=== PATIENT | female | born 2005 ===

== ENCOUNTER 2024-03-16 06:17 | Inpatient (IN) | payer OTHER ==
[2024-03-16] VITALS (57 sets, daily range): BP systolic 115–182; BP diastolic 51–101; PULSE 68–109; TEMP 97.8–98.9
[~2024-03-16] VITALS: Ht 162.6 cm; Wt 109.5 kg
[~2024-03-16 06:17] MED LIST: BASAGLAR K100 UNIT/1 SQ; CVS GLUCOSE15 GM PO; NOVOLOG FLEX100 U/ML SQ
--- NOTE | 2024-03-16 06:45 | NUR ---
THE PATIENT IS AMBULATORY TO THE UNIT WITH SPOUSE AT SIDE FOR INDUCTION OF LABOR BY PITOCIN. PT TO LR3 AND CHANGED INTO A CLEAN GOWN. DISCUSSED POC FOR THE DAY. CONSENTS DISCUSSED AND ACKNOWLEDGED. PT PLACED ON EFM AND TOCO. INITIAL VITALS OBTAINED. IV STARTED LEFT WRIST WITHOUT DIFFICULTY, LABS OBTAINED FROM IV START AND SENT TO LAB, IVF INFUSING AT THIS TIME. SVE 3/70/-3 BAG OF WATER INTACT. PT DENIES LEAKING FLUIDS, VAGINAL BLEEDING OR CONTRACTIONS. STATES GOOD MOVEMENT. IS AT THE NURSING STATION AND GIVES VERBAL ORDERS FOR INDUCTION. PT IS TYPE 1 DIABETIC, ORDERS GIVEN FOR POC BLOOD SUGARS Q2H DURING LABOR. THE PATIENT HAS HER OWN INSULIN PUMP ON HER BODY, AND PER , THE PATIENT CAN MANAGE HER PUMP FOR ANY BLOOD SUGARS OUT OF RANGE. NO OTHER CONCERNS AT THIS TIME.
[2024-03-16] MEDS ORDERED: LR 1,000 ML IV SCH (07:15)
[2024-03-16] MEDS ORDERED: LR & Oxytocin 500 ML IV SCH (07:15)
[2024-03-16 07:22] LABS: BASO % 0.3 % (0.0-2.0); EOS # 0.1 K/mm3 (0.0-0.7); GRAN # 6.3 K/mm3 (1.4-6.5); GRAN % 70.3 % (42.2-75.2); HEMOGLOBIN 12.1 g/dl (12.0-15.0); LYMPH # 1.9 K/mm3 (1.2-3.4); LYMPH % 21.5 % (20.0-51.0); MEAN CELL VOLUME 82 fl (80.0-95.0); MEAN CORPUSCULAR HEMOGLOBIN 28 pg (26-32); MEAN CORPUSCULAR HGB CONC 34 g/dl (33.0-37.0); MEAN PLATELET VOLUME 11.3 fl (7.4-10.4); MONO # 0.5 K/mm3 (0.1-0.6); MONO % 5.7 % (1.7-9.3); PLATELET COUNT 233 K/mm3 (130-400); RED BLOOD COUNT 4.36 M/mm3 (4.10-5.30); REDCELL DISTRIBUTION WIDTH-CV 14.2 % (11.5-14.5)
[2024-03-16 07:23] LABS: HEMATOCRIT 35.9 % (35.0-45.0)
[2024-03-16] MEDS ORDERED: NOVOLOG 100U100 U/M1 SQ (07:28)
[2024-03-16] MEDS ORDERED: Penicillin G Potassium 5,000,000 UNITS in NS 100 ML IV ONE (07:30)
[2024-03-16] MEDS ORDERED: Ondansetron 4 MG/2 ML VIAL IV PRN (09:45)
[2024-03-16] MEDS ORDERED: ePHEDrine 50 MG/10 ML VIAL IV PRN (09:45)
[2024-03-16] MEDS ORDERED: diphenhydrAMINE 25 MG CAP PO PRN (09:45)
[2024-03-16] MEDS ORDERED: diphenhydrAMINE 50 MG/ML 1 ML VIAL IV PRN (09:45)
[2024-03-16] MEDS ORDERED: Naloxone 0.4 MG/ML VIAL IV PRN (09:45)
[2024-03-16] MEDS ORDERED: ROPivacaine PF 0.2% 200 ML IV ONE (09:54)
--- NOTE | 2024-03-16 10:09 | NUR ---
PT SITTING UP FOR EPIDURAL PLACEMENT PER LIA LATHAM. 1008 SINGLE SHOT PT TOLERATED PROCEDURE WELL. REPOSITIONED TO WEDGE LEFT.
--- NOTE | 2024-03-16 10:15 | NUR ---
PT SITTING UPRIGHT FOR EPIDURAL PLACEMENT, DIFFICULTY TRACING FHT D/T MATERNAL HABITUS AND POSITIONING. SPO2 MONITOR ON PT CONSISTENT WITH FHT TRACING, THIS RN ATTEMPTS TO LOCATE FHT MOMENTARILY, 30 SECONDS OF HEART TONES RECORDED BASELINE 140'S.
[2024-03-16] MEDS ORDERED: Penicillin G Potassium 2,500,000 UNITS in NS 100 ML IV SCH (11:30)
[2024-03-16] MEDS ORDERED: NS 1,000 ML IV SCH (12:15)
--- NOTE | 2024-03-16 14:00 | NUR ---
PT'S UTERUS BECAME TACHYSYSTOLE, NOTIFIED PROVIDER OF THIS, AND REDUCED PITOCIN TO 8MU. AWARE AND STATES HE'S OK WITH THIS AT THIS TIME.
--- NOTE | 2024-03-16 15:45 | NUR ---
FHR DECELS DEEP EARLY, REPOSITIONED PATIENT, HEART TONES RETURN TO BASELINE, CONTRACTION STARTS AND IT'S COMING DOWN FHR HAS A LATE THAT TAKES APPROXIMATELY 3 MINUTES TO RETURN TO BASELINE BUT HAS GREAT VARIABILITY DURING IT'S RETURN TO BASELINE.
--- NOTE | 2024-03-16 18:30 | NUR ---
REPORT GIVEN TO NIKI MEJÍA.
[2024-03-16] MEDS ORDERED: hydrALAZINE 20 MG/ML 1 ML VIAL IV PRN ×2 (19:15)
--- NOTE | 2024-03-16 20:30 | NUR ---
LATE AND VARIABLE DECELS NOTED DURING THIS TRACING, RN AT THE BEDSIDE REPOSITIONING PT AND PT IN A SUPINE POSITION. ONCE PT REPOSITIONED LATE DECELS RESOLVED AND VARIABLE DECELS OCCURING INTERMITTENTLY, EVERY 3-5 CTX. WILL RECHECK PT IN 15 MINUTES.
[2024-03-16 21:24] LABS: ALBUMIN 2.2 g/dL (3.5-5.0); BILIRUBIN,TOTAL 0.4 mg/dL (0.2-1.2); CREATININE, serum 0.62 mg/dL (0.57-1.11); POTASSIUM 3.9 mEq/L (3.5-4.5); TOTAL PROTEIN 5.5 g/dl (6.2-8.1)
--- NOTE | 2024-03-16 21:40 | NUR ---
LIVE FEMALE DELIVERED VIA . INFANT DRIED AND STIMULATED BY DR CUEVA, BULB SUCTIONED ALSO. INFANT NOT VIGOROUSLY CRYING SHORTLY AFTER DELIVERY, DR CUEVA CLAMPS CORD AND FOB CUTS CORD. TAKEN TO RADIANT WARMER FOR FURTHER ASSESSMENT BY NURSERY RN.
[2024-03-17] VITALS: BP 130/68; PULSE 97; TEMP 98.8
[2024-03-17] MEDS ORDERED: Measles/Mumps/Rubella Virus Vaccine Live w Diluent 0.5 ML VIAL SQ SCH (00:15)
[2024-03-17] MEDS ORDERED: Acetaminophen 500 MG TAB PO SCH (00:15)
[2024-03-17] MEDS ORDERED: oxyCODONE 5 MG TAB PO PRN (00:15)
[2024-03-17] MEDS ORDERED: Naloxone 0.4 MG/ML VIAL IV PRN (00:15)
[2024-03-17] MEDS ORDERED: Witch Hazel 50% Pads Bulk TUB TP PRN (00:15)
[2024-03-17] MEDS ORDERED: Phenylephrine/Mineral Oil/Petrolatum 57 GM TUBE RC PRN (00:15)
[2024-03-17] MEDS ORDERED: Mag/Al Hydrox/Simeth Susp 30 ML CUP PO PRN (00:15)
[2024-03-17] MEDS ORDERED: Ibuprofen 800 MG TAB PO SCH (00:15)
[2024-03-17 03:30] VITALS: BP 155/81; PULSE 68; TEMP 98.1
[2024-03-17 07:25] VITALS: BP 110/75; PULSE 71; TEMP 97.6
[2024-03-17] MEDS ORDERED: Sennosides/Docusate 8.6-50 MG TAB PO SCH (08:00)
[2024-03-17] MEDS ORDERED: Loratadine 10 MG TAB PO PRN (09:00)
--- NOTE | 2024-03-17 10:24 | NUR ---
Initial visit attempt: Patient Indisposed with nurse present. Pitch Filler left a card offering congratulations and God's blessings for the of their daughter. Dad was also present.
[2024-03-17 16:30] VITALS: BP 138/82; PULSE 70
[2024-03-17 19:00] VITALS: BP 134/80; PULSE 72; TEMP 98.1
[2024-03-17] MEDS ORDERED: traZODone 50 MG TAB PO PRN (21:00)
[2024-03-17] MEDS ORDERED: Magnes Hydrox (MOM) 80 MG/ML 30 ML CUP PO PRN (21:00)
[2024-03-18 08:00] VITALS: BP 126/87; PULSE 74; TEMP 98
[2024-03-18] MEDS ORDERED: MOTRIN 800800 MG/TAB PO (08:06)
== END 2024-03-18 13:20 | disposition home or self-care (01) | DRG 807 ==
LOC: OB 06:17 → LDR 06:17 → OB 10:50
PROVIDERS: ADMIT Obstetrics & Gynecology
PROC: 10E0XZZ Delivery of Products of Conception, External Approach (ICD-10-PCS; principal; 2024-03-16)
PROC: 0HQ9XZZ Repair Perineum Skin, External Approach (ICD-10-PCS; 2024-03-16)
PROC: 0UQMXZZ Repair Vulva, External Approach (ICD-10-PCS; 2024-03-16)
PROC: 3E033VJ Introduction of Other Hormone into Peripheral Vein, Percutaneous Approach (ICD-10-PCS; 2024-03-16)
PROC: 10907ZC Drainage of Amniotic Fluid, Therapeutic from Products of Conception, Via Natural or Artificial Opening (ICD-10-PCS; 2024-03-16)
DX: O24.02 Pre-existing type 1 diabetes mellitus, in childbirth (principal); Z37.0 Single live birth; O99.824 Streptococcus B carrier state complicating childbirth; O99.214 Obesity complicating childbirth; E10.9 Type 1 diabetes mellitus without complications; O77.0 Labor and delivery complicated by meconium in amniotic fluid; O70.0 First degree perineal laceration during delivery; Z96.41 Presence of insulin pump (external) (internal); Z3A.39 39 weeks gestation of pregnancy
CPT/HCPCS: J0360; J2405; J2540; J2590; J2795; J7030; J7120